=== PATIENT | male | born 1990 | race African-American/Black ===

== ENCOUNTER 2019-12-31 20:52 | Emergency (ER) | payer OTHER ==
[~2019-12-31] VITALS: Ht 167.6 cm; Wt 86.2 kg
[2019-12-31 22:18] LABS: AMP/METHAMP Negative (Negative); BARBITURATES Negative (Negative); BENZODIAZEPINES Negative (Negative); COCAINE Negative (Negative); METHADONE Negative (Negative); OPIATES Negative (Negative); PCP POSITIVE (Negative)
[2020-01-01 03:17] VITALS: BP 139/70
== END 2020-01-01 03:17 | disposition home or self-care (01) ==
LOC: ER 20:52
PROVIDERS: Emergency Medicine
DX: F10.920 Alcohol use, unspecified with intoxication, uncomplicated (principal); F16.90 Hallucinogen use, unspecified, uncomplicated; R41.82 Altered mental status, unspecified